=== PATIENT | female | born 1955 | race Caucasian/White ===

== ENCOUNTER 2017-12-14 08:12 | Day surgery (SDC) | payer OTHER ==
[~2017-12-14] VITALS: Ht 162.6 cm; Wt 64.9 kg
== END 2017-12-14 22:35 | disposition home or self-care (01) ==
LOC: ORSCMMR 08:12 → ORD 09:00 → ORSCMMR 22:35
PROVIDERS: Internal Medicine Gastroenterology
PROC: 0DJD8ZZ Inspection of Lower Intestinal Tract, Via Natural or Artificial Opening Endoscopic (ICD-10-PCS; principal; 2017-12-14 09:00)
DX: Z12.11 Encounter for screening for malignant neoplasm of colon (principal); K63.5 Polyp of colon; K62.1 Rectal polyp; Z80.0 Family history of malignant neoplasm of digestive organs
CPT/HCPCS: 88305; J7120

== ENCOUNTER → 2018-09-01 | Outpatient (CLI) | payer OTHER ==
[2018-09-02 06:23] LABS: Candida species (DNA Probe) Negative (NEGATIVE); G. vaginalis (DNA Probe) Positive (NEGATIVE); T. vaginalis (DNA Probe) Negative (NEGATIVE)
== END | disposition home or self-care (01) ==
LOC: LAB 17:02 → LAB SHORT 17:02
PROVIDERS: Nurse Practitioner Family
DX: N89.8 Other specified noninflammatory disorders of vagina (principal)
CPT/HCPCS: 87480; 87510; 87660

== ENCOUNTER 2019-04-22 16:17 | Emergency (ER) | payer MEDICARE, BC ==
[~2019-04-22] VITALS: Ht 162.6 cm; Wt 63.5 kg
[2019-04-22] MEDS ORDERED: ERYT1OIN RIGHTEYE (16:25)
== END 2019-04-22 16:28 | disposition home or self-care (01) ==
LOC: ER 16:17
DX: H10.021 Other mucopurulent conjunctivitis, right eye (principal)
CPT/HCPCS: 99283

== ENCOUNTER 2019-11-14 10:06 | Day surgery (SDC) | payer MEDICARE, BC ==
[~2019-11-14] VITALS: Ht 154.9 cm; Wt 67.1 kg
[~2019-11-14 10:06] MED LIST: ACET325 PO; ERYT1OIN RIGHTEYE; Lopressor 25 mg25 MG PO; NAPR220 PO
--- NOTE | 2019-11-14 10:44 | NUR ---
Ambulatory in Day Surgery. History, Chart, Medications and Allergies reviewed before start of procedure. Lungs clear T/O to Auscultation. Patient confirms NPO status and agrees with scheduled surgery. Pre-Op teaching done. Pt verbalizes understanding. IV placed to Left AC
--- NOTE | 2019-11-14 11:04 | NUR ---
NITRO GIVEN PO. BP 126/63. HR 56
--- NOTE | 2019-11-14 11:20 | NUR ---
BACK TO [facility] FOR DISCHARGE. VSS
== END 2019-11-14 22:37 | disposition home or self-care (01) ==
LOC: CT 10:06 → ORD 10:06
DX: I25.10 Atherosclerotic heart disease of native coronary artery without angina pectoris (principal); K44.9 Diaphragmatic hernia without obstruction or gangrene; E78.5 Hyperlipidemia, unspecified; Z79.899 Other long term (current) drug therapy
CPT/HCPCS: 75574; Q9967

== ENCOUNTER 2020-09-18 19:12 | Emergency (ER) | payer MEDICARE ==
[~2020-09-18] VITALS: Ht 157.5 cm; Wt 68.0 kg
== END 2020-09-18 21:14 | disposition home or self-care (01) ==
LOC: ER 19:12
DX: L72.8 Other follicular cysts of the skin and subcutaneous tissue (principal); Z79.899 Other long term (current) drug therapy
CPT/HCPCS: 73100; 99283-25